=== PATIENT | female | born 1950 | race Caucasian/White ===

== ENCOUNTER 2018-09-30 16:50 | Emergency (ER) | payer OTHER ==
[2018-09-30] MEDS ORDERED: LORazepam 1 MG TAB PO ONE (17:24)
[2018-09-30] MEDS ORDERED: LORAZEPAM 1 MG PREPACK#4 BTL TAKEHOME ONE (17:24)
--- NOTE | 2018-09-30 17:28 | EDPHY ---
H & P Time Seen by Provider: 09/30/18 16:56 HPI/ROS: HPI Anxiety. 68-year-old female by private vehicle with family. This patient suffers from anxiety. She reports that 4 days ago she was placed on Zoloft by her [facility] primary care physician. It has not taken affect. She is aware that there is a delay before and affect is seen from this medication. She is asking for help with a bridging medication until the Zoloft takes affect. Her only complaint is anxiety. She denies significant depression. No suicidal thoughts. ROS: Constitutional: No fever, no chills. No weakness. Respiratory: No cough. No shortness of breath. Cardiac: No chest pain, no palpitations. Gastrointestinal: No abdominal pain, no vomiting, no diarrhea. Musculoskeletal: No back pain. No neck pain. No myalgias or arthralgias. Skin: No rashes. Neurological: No headache. No focal weakness or altered sensation. Past medical history: Anxiety. As above. Social history: Nonsmoker. Here with family. No alcohol. Physical Exam: General Appearance: Alert, mildly anxious, no distress. This patient is responding to questions appropriately and in full sentences. This patient appears well-hydrated and well-nourished. Eyes: Pupils equal and round no pallor or injection. No lid edema, erythema or injection. Respiratory: There are no retractions, lungs are clear to auscultation with good air movement bilaterally. Cardiovascular: Regular rate and rhythm. No murmur. Gastrointestinal: Abdomen is soft and nontender, no masses, bowel sounds normal. No focal tenderness at McBurney's point. No Ragsdale sign. Neurological: Motor sensory function is grossly intact. Cranial nerves are normal. Gait is normal. No tremor. Skin: Warm and dry, no rashes. Musculoskeletal: Neck is supple and nontender. Extremities are symmetrical. All joints range without pain or impingement. Psychiatric: No agitation. No depression. Database: EKG: Imaging: Procedures: Emergency department course: Triage vital signs reviewed. She is mildly hypertensive. Vital signs are otherwise normal. She will be given 1 mg of oral Ativan for her anxiety. Plan will be to discharge her with a take-home pack of this medication. She will then follow up with her primary care physician for re-evaluation and further management. 6:00 p.m., patient re-evaluated, resting comfortably at this time. She feels better after above medication. She feels comfortable going home with family. She will follow up with her [facility]ol[facility] primary care physician in the next 1-2 days for re-evaluation. Return to emergency department precautions have been reviewed with her. All of her questions were answered. She was discharged from the emergency department in good condition. Differential Diagnosis: The differential diagnosis on this patient includes but is not limited to anxiety. Sympathomimetic toxidrome, serotonin syndrome, suicidal ideation, severe depression unlikely. This represents a partial list of diagnoses considered. These considerations are based on history, physical exam, past history, reassessment and diagnostic testing. Smoking Status: Never smoked Constitutional: Initial Vital Signs Temperature (C) 36.5 C 09/30/18 16:54 Heart Rate 84 09/30/18 16:54 Respiratory Rate 20 09/30/18 16:54 Blood Pressure 145/74 H 09/30/18 16:54 O2 Sat (%) 98 09/30/18 16:54 O2 Delivery Mode Room Air Allergies/Adverse Reactions: No Known Allergies Allergy (Unverified 09/30/18 16:58) Home Medications: Medication Instructions Recorded Sertraline HCl [Zoloft 25mg (*)] 09/30/18 Medical Decision Making - Data Points Medications Given: Discontinued Medications Lorazepam (Ativan) 1 mg PO EDNOW ONE Stop: 09/30/18 17:25 Last Admin: 09/30/18 17:29 Dose: 1 mg Departure - Departure Disposition: Home, Routine, Self-Care Clinical Impression: Anxiety Condition: Good Instructions: Lorazepam (By mouth), Anxiety (ED) Additional Instructions: Read and follow provided instructions. Follow-up with your primary care physician or mental health provider at [facility] in 1-2 days for re-evaluation and further management as discussed. Take medication as prescribed. Ativan 1 mg tablets: 1 orally every 6-8 hours as needed for anxiety. Do not drive on this medication. Return to the emergency department for worsening symptoms or other serious concerns. Referrals: NONE *PRIMARY CARE P,. [Primary Care Provider] - As per Instructions
[2018-09-30 18:14] VITALS: BP 121/57
== END 2018-09-30 18:15 | disposition home or self-care (01) ==
DX: F41.9 Anxiety disorder, unspecified (principal)